=== PATIENT | female | born 1995 | race Caucasian/White ===

== ENCOUNTER 2021-04-12 19:46 | Emergency (ER) | payer OTHER ==
--- NOTE | 2021-04-12 20:09 | ED Physician Documentation ---
PD HPI CHEST PAIN - Stated complaint Stated Complaint: CHEST PX - Chief complaint Chief Complaint: Cardiac - History obtained from History obtained from: Patient - Additional information Additional information: Healthy 26-year-old woman without personal or family history of thromboembolic or heart disease presents with an aching pain just inferior to the right clavicle that started at 3 PM while at rest. It is nonradiating and intermittent lasting about 2 seconds at a time every 30 seconds or so. Does not seem to get better or worse with anything specific except deep breathing does make it worse. Exertion does not. She is never had it before. No recent travel, leg swelling, pedal edema, OCP/estrogen use. Review of Systems Ten Systems: 10 systems reviewed and negative Constitutional: reports: Reviewed and negative Nose: reports: Rhinorrhea / runny nose Respiratory: reports: Reviewed and negative PD PAST MEDICAL HISTORY - Past Medical History Past Medical History: No - Past Surgical History Past Surgical History: No - Allergies Allergies/Adverse Reactions: Allergies Allergy/AdvReac Type Severity Reaction Status Date / Time No Known Drug Allergies Allergy Verified 04/12/21 19:57 - Social History Does the pt smoke?: No Smoking Status: Never smoker Does the pt drink ETOH?: Yes Does the pt have substance abuse?: No - Immunizations Immunizations are current?: Yes - POLST Patient has POLST: No PD ED PE NORMAL - Vitals Vital signs reviewed: Yes - General General: Alert and oriented X 3, No acute distress - HEENT HEENT: PERRL, EOMI - Neck Neck: Supple, no meningeal sign, No bony TTP - Cardiac Cardiac: RRR, No murmur - Respiratory Respiratory: No respiratory distress, Clear bilaterally - Abdomen Abdomen: Soft, Non tender - Back Back: No CVA TTP, No spinal TTP - Derm Derm: Normal color, Warm and dry - Extremities Extremities: No edema, No calf tenderness / cord - Neuro Neuro: Alert and oriented X 3, Normal speech Results - Vitals Vitals: Vital Signs - 24 hr 04/12/21 04/12/21 04/12/21 19:51 20:06 21:05 Temperature 36.4 C L Heart Rate 90 71 66 Respiratory 14 16 15 Rate Blood Pressure 136/99 H 132/72 H 118/76 O2 Saturation 99 98 100 Oxygen O2 Source Room air - EKG (time done) 1949 Rate: Rate (enter#) (68) Rhythm: NSR [place]: Normal Intervals: Normal MT QRS: Normal Ischemia: Normal ST segments Computer interpretation: Agree with computer - Labs Labs: Laboratory Tests 04/12/21 04/12/21 04/12/21 20:12 20:12 20:12 WBC 5.4 RBC 3.77 L Hgb 12.4 Hct 36.9 L MCV 97.9 MCH 32.9 H MCHC 33.6 RDW 11.5 L Plt Count 204 MPV 10.3 Neut # (Auto) 2.7 Lymph # (Auto) 2.1 [place] # (Auto) 0.5 Eos # (Auto) 0.1 Baso # (Auto) 0.0 Absolute Nucleated RBC 0.00 Nucleated RBC % 0.0 Sodium 140 Potassium 3.7 Chloride 106 Carbon Dioxide 25 Anion Gap 9.0 BUN 15 Creatinine 1.0 Estimated GFR (MDRD) 67 L Glucose 100 Calcium 8.6 Total Bilirubin 0.6 AST 18 ALT 14 Alkaline Phosphatase 33 L Troponin I High Sens < 2.3 L Total Protein 6.8 Albumin 4.1 Globulin 2.7 Albumin/Globulin Ratio 1.5 Lipase 44 - Rads (name of study) 1v cxr Radiology: EMP read contemporaneously (NAD) PD MEDICAL DECISION MAKING - ED course ED course: Heart score 0, PERC negative Departure - Departure Disposition: 01 Home, Self Care Clinical Impression: Atypical chest pain Condition: Good Record reviewed to determine appropriate education?: Yes Instructions: ED Chest Pain Atypical Unkn Cause Comments: Call your doctor to arrange a follow-up appointment, make the next available appointment. In the interim, return anytime if worse or if new symptoms dev elop.
[2021-04-12 20:21] LABS: BASOPHILS % (AUTO) 0.7 %; EOSINOPHILS # (AUTO) 0.1 10^3/uL (0.0-0.7); EOSINOPHILS % (AUTO) 2.4 %; HCT - HEMATOCRIT 36.9 % (37.0-47.0); HGB - HEMOGLOBIN 12.4 g/dL (12.0-16.0); LYMPHOCYTES # (AUTO) 2.1 10^3/uL (1.5-3.5); LYMPHOCYTES % (AUTO) 37.9 %; MEAN CORPUSCULAR HEMOGLOBIN 32.9 pg (27.0-31.0); MEAN CORPUSCULAR HGB CONC 33.6 g/dL (32.0-36.0); MEAN CORPUSCULAR VOLUME 97.9 fL (81.0-99.0); MEAN PLATELET VOLUME 10.3 fL (7.9-10.8); MONOCYTES # (AUTO) 0.5 10^3/uL (0.0-1.0); MONOCYTES % (AUTO) 9.7 %; NEUTROPHILS # (AUTO) 2.7 10^3/uL (1.5-6.6); NEUTROPHILS % (AUTO) 49.1 %; PLT - PLATELET COUNT 204 10^3/uL (130-450); RED BLOOD COUNT 3.77 10^6/uL (4.20-5.40); RED CELL DISTRIBUTION WIDTH 11.5 % (12.0-15.0); WHITE BLOOD COUNT 5.4 x10^3/uL (4.8-10.8)
[2021-04-12 20:31] LABS: ALBUMIN 4.1 g/dL (3.2-5.5); ALBUMIN/GLOBULIN RATIO 1.5 (1.0-2.2); BILIRUBIN,TOTAL 0.6 mg/dL (0.2-1.0); CALCIUM 8.6 mg/dL (8.5-10.3); POTASSIUM 3.7 mmol/L (3.5-5.0); TOTAL PROTEIN 6.8 g/dL (6.7-8.2)
--- NOTE | 2021-04-12 20:38 | XRAY Report ---
PROCEDURE: Chest 1 View X-Ray INDICATIONS: Chest Pain TECHNIQUE: One view of the chest was acquired. COMPARISON: None. FINDINGS: Surgical changes and devices: None. Lungs and pleura: No pleural effusions or pneumothorax. Lungs are clear. Mediastinum: Mediastinal contours appear normal. Heart size is normal. Bones and chest wall: No suspicious bony lesions. Overlying soft tissues appear unremarkable. IMPRESSION: Chest without acute cardiopulmonary abnormalities. No focal consolidation. Reviewed by: Paul Bansal MD on 04/12/2021 8:36 PM PDT Approved by: Paul Bansal MD on 04/12/2021 8:36 PM PDT Station ID: [id number]
[2021-04-12 21:06] VITALS: BP 118/76
== END 2021-04-12 21:09 | disposition home or self-care (01) ==
LOC: ED 19:46
DX: R07.89 Other chest pain (principal)
CPT/HCPCS: 36415; 80053; 83690; 84484; 85025; 93005; 99284

== ENCOUNTER 2022-05-04 14:47 | Emergency (ER) | payer OTHER ==
--- NOTE | 2022-05-04 15:54 | XRAY Report ---
PROCEDURE: Chest 1 View X-Ray INDICATIONS: SOA TECHNIQUE: One view of the chest was acquired. COMPARISON: Single view the chest dated 04/12/2021 FINDINGS: Surgical changes and devices: None. Lungs and pleura: No pleural effusions or pneumothorax. Lungs are clear. Mediastinum: Mediastinal contours appear normal. Heart size is normal. Bones and chest wall: No suspicious bony lesions. Overlying soft tissues appear unremarkable. IMPRESSION: No acute cardiopulmonary findings. Reviewed by: Terra Mcgowan MD on 05/04/2022 3:52 PM PDT Approved by: Terra Mcgowan MD on 05/04/2022 3:52 PM PDT Station ID: [id number]
[2022-05-04] MEDS ORDERED: KETOROLAC 60 MG/2 ML VIAL IM STA (17:32)
--- NOTE | 2022-05-04 17:52 | ED Physician Documentation ---
History of Present Illness - Stated complaint Stated Complaint: SOA, BACK PX - Chief complaint Chief Complaint: Resp - History obtained from History obtained from: Patient - History of Present Illness Timing: Today Pain level max: 6 Pain level now: 5 - Additonal information Additional information: Patient is a 27-year-old female presents the emergency department stating she woke up this morning with upper back pain. Worse with movement and taking a deep breath. Denies any recent illnesses. Denies any trauma. No history of blood clots. No swelling in the legs. Does not use IV drugs. No fevers. No chills. No cough. No recent travel. Review of Systems Ten Systems: 10 systems reviewed and negative Constitutional: denies: Fever, Chills Nose: denies: Rhinorrhea / runny nose, Congestion Respiratory: denies: Cough GI: denies: Nausea, Vomiting, Diarrhea Skin: denies: Rash Musculoskeletal: denies: Neck pain Neurologic: denies: Focal weakness, Numbness, Headache PD PAST MEDICAL HISTORY - Past Medical History Past Medical History: No - Past Surgical History Past Surgical History: No - Present Medications Home Medications: Ambulatory Orders Medication Instructions Recorded Confirmed Ibuprofen [Motrin] 800 mg PO Q8H PRN #30 tablet 05/04/22 - Allergies Allergies/Adverse Reactions: Allergies Allergy/AdvReac Type Severity Reaction Status Date / Time latex Allergy Rash Verified 05/04/22 14:54 - Social History Does the pt smoke?: No Smoking Status: Never smoker Does the pt drink ETOH?: Yes Does the pt have substance abuse?: No - Immunizations Immunizations are current?: Yes - POLST Patient has POLST: No PD ED PE NORMAL - Vitals Vital signs reviewed: Yes - General General: Alert and oriented X 3, No acute distress - HEENT HEENT: Moist mucous membranes - Neck Neck: Supple, no meningeal sign - Cardiac Cardiac: RRR - Respiratory Respiratory: No respiratory distress, Clear bilaterally - Abdomen Abdomen: Soft, Non tender, Non distended - Back Back: No spinal TTP, Other (There is pain under the left rhomboid with stretching the left arm across the anterior chest. There is also tenderness on palpation.) - Derm Derm: Warm and dry - Extremities Extremities: No edema, No calf tenderness / cord - Neuro Neuro: Alert and oriented X 3 Results - Vitals Vitals: Vital Signs - 24 hr 05/04/22 05/04/22 14:51 18:05 Temperature 36.7 C 36.5 C Heart Rate 70 66 Respiratory 18 16 Rate Blood Pressure 137/92 H 131/87 H O2 Saturation 98 100 Oxygen O2 Source Room air - Rads (name of study) Chest x-ray Radiology: Final report received, EMP read contemporaneously, See rad report (No acute abnormality) PD MEDICAL DECISION MAKING - ED course Complexity details: reviewed results, considered differential, d/w patient ED course: Patient with what appears to be a rhomboid muscle strain. Lungs are clear to auscultation bilaterally. No evidence of pulmonary embolus. No evidence of pneumothorax. Given Toradol and pain improved. Will place on anti- inflammatories for home encouraged gentle stretching and have her follow-up with her doctor. Patient counseled regarding signs and symptoms for which I believe and urgent re-evaluation would be necessary. Patient with good understanding of and agreement to plan and is comfortable going home at this time This document was made in part using voice recognition software. While efforts are made to proofread this document, sound alike and grammatical errors may occur. Departure - Departure Disposition: 01 Home, Self Care Clinical Impression: Rhomboid muscle strain Qualifiers: Encounter type: initial encounter Qualified Code(s): S29.012A - Strain of muscle and tendon of back wall of thorax, initial encounter Condition: Good Instructions: ED Neck Back Pain General Follow-Up: your,doctor in 1 week [Other] Prescriptions: Ibuprofen [Motrin] 800 mg PO Q8H PRN #30 tablet PRN Reason: PAIN &/OR FEVER Comments: Your prescription was sent to [facility] in [place]. Please follow-up with your doctor for further care. Return if you worsen. Your testing does not show any acute abnormalities today. Discharge Date/Time: 05/04/22 18:09
[2022-05-04 18:06] VITALS: BP 131/87
== END 2022-05-04 18:09 | disposition home or self-care (01) ==
LOC: ED 14:47
DX: S29.012A Strain of muscle and tendon of back wall of thorax, initial encounter (principal); X58.XXXA Exposure to other specified factors, initial encounter
CPT/HCPCS: 96372; 99282; 99283

== ENCOUNTER 2022-07-30 08:00 | Outpatient (CLI) | payer OTHER ==
[2022-07-30 22:16] LABS: BACTERIAL VAGINOSIS DNA POSITIVE (NEGATIVE); CANDIDA GLABRATA DNA NEGATIVE (NEGATIVE); CANDIDA GROUP DNA NEGATIVE (NEGATIVE); CANDIDA KRUSEI DNA NEGATIVE (NEGATIVE); TRICHOMONAS VAGINALIS DNA NEGATIVE (NEGATIVE)
== END 2022-07-30 23:59 | disposition home or self-care (01) ==
LOC: LAB.WC 08:00
PROVIDERS: ATTEND Nurse Practitioner
DX: N89.8 Other specified noninflammatory disorders of vagina (principal)
CPT/HCPCS: 81514

== ENCOUNTER 2022-08-27 08:00 | Outpatient (CLI) | payer OTHER ==
[2022-08-28 00:11] LABS: BACTERIAL VAGINOSIS DNA NEGATIVE (NEGATIVE); CANDIDA GLABRATA DNA NEGATIVE (NEGATIVE); CANDIDA GROUP DNA NEGATIVE (NEGATIVE); CANDIDA KRUSEI DNA NEGATIVE (NEGATIVE); TRICHOMONAS VAGINALIS DNA NEGATIVE (NEGATIVE)
== END 2022-08-27 23:59 | disposition home or self-care (01) ==
LOC: LAB 08:00 → DI 08:00 → LAB 23:59
PROVIDERS: ATTEND Nurse Practitioner
DX: N89.8 Other specified noninflammatory disorders of vagina (principal); N89.9 Noninflammatory disorder of vagina, unspecified
CPT/HCPCS: 81514; 87661; 87801

== ENCOUNTER 2022-10-12 16:51 | Outpatient (CLI) | payer OTHER ==
--- NOTE | 2022-10-13 16:21 | Ultrasound Report ---
PROCEDURE: Pelvic w/Transvaginal INDICATIONS: OVARIAN CYST TECHNIQUE: Real-time scanning was performed of the pelvic organs, with image documentation. Additional endovagi nal scanning was necessary due to incomplete visualization of the adnexal and endometrial structures by transabdominal scanning. COMPARISON: 08/26/2022. FINDINGS: Uterus: Uterus is anteverted and normal in size at 6.5 x 2.9 x 3.8 cm. The myometrium is homogeneou s. The endometrium measures 8.9 mm in combined thickness. No fibroids Ovaries: The right ovary measures 2.2 x 0.9 x 1.9 cm, with a calculated ovarian volume of 2.1 cc. T he left ovary measures 3.0 x 2.7 x 2.8 cm, with a calculated ovarian volume of 11.7 cc. The ovaries have a normal sonographic appearance. Less than 12 follicles can be seen in each ovary. There is a l eft ovarian cyst which currently measures 2.1 x 1.7 x 2.2 cm. It looks quite different than the previ ous cystic structure, which had extensive echogenicity, and has a hemorrhagic appearance. This may po tentially be a different structure. It is a simple cyst. No adnexal masses are seen. Other: No pathologic free abdominal or pelvic fluid. IMPRESSION: Simple left ovarian cyst of normal size. No any for further follow-up. Reviewed by: Yaya Koch MD on 10/13/2022 4:19 PM PST Approved by: Yaya Koch MD on 10/13/2022 4:19 PM PST Station ID: [id number]
== END 2022-10-12 16:52 | disposition home or self-care (01) ==
LOC: DI 16:51
PROVIDERS: ATTEND Nurse Practitioner
DX: N83.292 Other ovarian cyst, left side (principal)

== ENCOUNTER 2022-11-23 23:50 | Emergency (ER) | payer OTHER ==
[2022-11-24] MEDS ORDERED: hydrOXYzine PAMOATE 25 MG CAPSULE PO STA (00:37)
--- NOTE | 2022-11-24 00:46 | ED Physician Documentation ---
History of Present Illness - Stated complaint Stated Complaint: DIZZY/FEELING FAINT - Chief complaint Chief Complaint: Heent - History obtained from History obtained from: Patient - Additonal information Additional information: 19-year-old woman, previously healthy, presents with 3 episodes over the past week of rapid breathing, tunnel vision, and feeling of the world swirling around her. She states that The most recent episode happened this evening while she was trying to fall asleep and she felt very concerned, not knowing what was going on. Denies chest pain, shortness of breath, fever, nausea or other symptoms. Review of Systems Constitutional: denies: Fever Cardiac: reports: Palpitations. denies: Chest pain / pressure Respiratory: denies: Dyspnea, Cough PD PAST MEDICAL HISTORY - Past Surgical History Past Surgical History: No - Present Medications Home Medications: Ambulatory Orders Medication Instructions Recorded Confirmed Ibuprofen [Motrin] 800 mg PO Q8H PRN #30 tablet 05/04/22 hydrOXYzine pamoate [Hydroxyzine 25 mg PO Q6H PRN #20 cap 11/24/22 Pamoate] - Allergies Allergies/Adverse Reactions: Allergies Allergy/AdvReac Type Severity Reaction Status Date / Time latex Allergy Rash Verified 11/24/22 00:02 - Social History Does the pt smoke?: No Smoking Status: Never smoker Does the pt drink ETOH?: Yes Does the pt have substance abuse?: No - Immunizations Immunizations are current?: Yes - POLST Patient has POLST: No PD ED PE NORMAL - Vitals Vital signs reviewed: Yes - General General: Alert and oriented X 3, No acute distress, Well developed/nourished, Other (tearful appearing) - HEENT HEENT: Atraumatic, PERRL, EOMI, Moist mucous membranes, Pharynx benign - Neck Neck: Thyroid normal - Cardiac Cardiac: RRR - Respiratory Respiratory: No respiratory distress, Clear bilaterally - Abdomen Abdomen: Non tender, Non distended Results - Vitals Vitals: Vital Signs - 24 hr 11/23/22 11/24/22 11/24/22 23:57 00:03 00:50 Temperature 36.8 C Heart Rate 101 H 79 Respiratory 22 18 Rate Blood Pressure 144/91 H 143/78 H O2 Saturation 100 100 Oxygen O2 Source Room air PD Medical Decision Making - ED course ED course: 19-year-old woman presents with acute episode of dizziness, tunnel vision, hyperventilation. Vital signs and physical exam benign with the exception of mild tachycardia. Discussed that this is possibly a panic attack and provided atarax rx and referral to a pcp. return precautions given. Departure - Departure Disposition: 01 Home, Self Care Clinical Impression: Panic attack Condition: Stable Instructions: ED Panic Attack Follow-Up: Cecy Najera ARNP [Provider Admit Priv/Credential] - Prescriptions: hydrOXYzine pamoate [Hydroxyzine Pamoate] 25 mg PO Q6H PRN #20 cap PRN Reason: Anxiety Comments: You were seen in the emergency department for evaluation after an episode of lightheadedness, tunnel vision, and rapid breathing likely was a panic attack. Please follow-up with a primary care provider and fill your prescription for Atarax (generic name hydroxyzine) which can help with anxiety attacks. Return to the emergency department for new or worsening symptoms or other concerns. Electronic script sent to [email or web address]. Discharge Date/Time: 11/24/22 00:51
[2022-11-24 00:51] VITALS: BP 143/78
== END 2022-11-24 00:51 | disposition home or self-care (01) ==
LOC: ED 23:50
DX: F41.0 Panic disorder [episodic paroxysmal anxiety] (principal)
CPT/HCPCS: 99282; 99283; A9270

== ENCOUNTER 2023-03-25 14:00 | Outpatient (CLI) | payer OTHER ==
[2023-03-25 21:06] LABS: CHLAMYDIA TRACHOMATIS DNA NEGATIVE (NEGATIVE); NEISSERIA GONORRHOEAE DNA NEGATIVE (NEGATIVE); TRICHOMONAS VAGINALIS DNA NEGATIVE (NEGATIVE)
[2023-03-26 07:10] LABS: RPR Non Reactive (Non Reactive)
[2023-03-27 01:08] LABS: HCV AB Non Reactive (Non Reactive)
[2023-03-27 04:09] LABS: HIV SCREEN 4TH GENERATION Non Reactive (Non Reactive)
== END 2023-03-25 14:15 | disposition home or self-care (01) ==
LOC: LAB.N 14:00
PROVIDERS: ATTEND Physician Assistant Medical
DX: Z11.3 Encounter for screening for infections with a predominantly sexual mode of transmission (principal)
CPT/HCPCS: 86592; 86803; 87389; 87491; 87591; 87661

== ENCOUNTER 2023-06-14 15:00 | Outpatient (CLI) | payer OTHER ==
--- NOTE | 2023-06-14 18:53 | Ultrasound Report ---
PROCEDURE: Duplex Ext Veins Right INDICATIONS: RIGHT CALF PAIN TECHNIQUE: Real-time imaging, as well as color and pulse Doppler interrogation, were performed of the lower extr emity deep veins from the inguinal ligament to the popliteal fossa. Attempted visualization of the ca lf veins was performed. COMPARISON: None. FINDINGS: The deep veins are normally compressible, and free of intraluminal thrombus. Color and pu lse Doppler demonstrate normal phasic intraluminal flow. There is normal augmentation response to di stal compression maneuver. IMPRESSION: No deep venous thrombosis of the right lower extremity. Reviewed by: Yaya Koch MD on 06/14/2023 6:51 PM PST Approved by: Yaya Koch MD on 06/14/2023 6:51 PM PST Station ID: [id number]
== END 2023-06-14 15:01 | disposition home or self-care (01) ==
LOC: DI 15:00
PROVIDERS: ATTEND Registered Nurse
DX: M79.661 Pain in right lower leg (principal)

== ENCOUNTER 2023-06-19 08:00 | Outpatient (CLI) | payer OTHER | END 2023-06-19 23:59 | disposition home or self-care (01) | LOC: LAB.R 08:00 | PROVIDERS: ATTEND Family Medicine | DX: R19.5 Other fecal abnormalities (principal) | CPT/HCPCS: 87177; 87209 ==

== ENCOUNTER 2023-08-24 08:00 | Outpatient (CLI) | payer OTHER ==
[2023-08-25 12:03] LABS: BACTERIAL VAGINOSIS DNA POSITIVE (NEGATIVE); CANDIDA GROUP DNA NEGATIVE (NEGATIVE); CANDIDA KRUSEI DNA NEGATIVE (NEGATIVE); TRICHOMONAS VAGINALIS DNA NEGATIVE (NEGATIVE)
[2023-08-25 12:04] LABS: CANDIDA GLABRATA DNA NEGATIVE (NEGATIVE)
== END 2023-08-24 23:59 | disposition home or self-care (01) ==
LOC: LAB.WC 08:00
PROVIDERS: ATTEND Nurse Practitioner
DX: N89.8 Other specified noninflammatory disorders of vagina (principal)
CPT/HCPCS: 81514; 81599; 87109